=== PATIENT | male | born 1970 | race Two or more races ===

== ENCOUNTER 2024-02-03 14:00 | Outpatient (RCR) | payer MEDICAID, SELFPAY ==
--- NOTE | 2024-02-01 16:25 | PT.ODAYNRPT ---
PT Outpatient Daily Note OP Daily Note Outpatient Physical Therapy Treatment Date: 02/01/24 Visit Reasons: Chronic neck pain Subjective: Temporary relief after therapy visits. Objective: Objective: See F/S for therex Mech traction C/S x7' at 12 lbs MHP x5' C/S MT: HVT C1-2 rotary x1 R/L and x7' Assessment: C1-2 and CTJ were restricted prior to manual therapy. Good response to manual therapy. Plan: Continue per POC Length of Time (minutes) of Treatment: 30 Minutes Procedure Charges Therapeutic Exercise 30 minutes: Yes
--- NOTE | 2024-02-03 14:25 | PT.ODS1RPT ---
PT OP Progress/Discharge Note Date of Service: 02/03/24 Progress Note/DC Note Progress Note/Discharge Note: DC Note Patient Information Visit Reasons: Chronic neck pain Service Continue Service or Discharge: Discharge Status Subjective: The neck was hurting more than usual yesterday. Overall the pain is about the same, not helping. Objective: See F/S for therex Mech traction C/S x7' at 12 lbs MHP x5' C/S C/S AROM: Extension: 50% with pain Flexion: full with pain B rotation: L: 65%, R: 65% TTP: moderate of paraspinals Assessment: Pt attended the eval and 6 sessions with limited progress with therapy goals due to continued neck pain. Pt hasn't made progress with goals and pain interrupts sleep. PT recommends further diagnostic imaging of C/S. Thank you for your referrals. Plan: D/C Procedure Charges Therapeutic Exercise 30 minutes: Yes
== END 2024-02-27 23:59 | disposition home or self-care (01) ==
LOC: CPTX 14:00
PROVIDERS: PCP Nurse Practitioner Primary Care; Referring Provider Nurse Practitioner Primary Care; Visit Provider Nurse Practitioner Primary Care
DX: M54.12 Radiculopathy, cervical region (principal)
CPT/HCPCS: 97110

== ENCOUNTER → 2024-02-19 | Outpatient (BNVA) | payer MEDICAID, SELFPAY | END | disposition home or self-care (01) | PROVIDERS: PCP Nurse Practitioner Primary Care; Referring Provider Nurse Practitioner Primary Care; Visit Provider Nurse Practitioner Primary Care | DX: Z00.01 Encounter for general adult medical examination with abnormal findings (principal); Z11.3 Encounter for screening for infections with a predominantly sexual mode of transmission; Z12.5 Encounter for screening for malignant neoplasm of prostate; Z13.220 Encounter for screening for lipoid disorders; Z13.21 Encounter for screening for nutritional disorder; Z76.89 Persons encountering health services in other specified circumstances ==

== ENCOUNTER → 2024-02-23 | Outpatient (BNVA) | payer MEDICAID, SELFPAY | END | disposition home or self-care (01) | PROVIDERS: PCP Nurse Practitioner Primary Care; Referring Provider Nurse Practitioner Primary Care; Visit Provider Nurse Practitioner Primary Care | DX: Z71.2 Person consulting for explanation of examination or test findings (principal); H00.011 Hordeolum externum right upper eyelid; E78.2 Mixed hyperlipidemia | CPT/HCPCS: 99213 ==

== ENCOUNTER → 2024-03-17 | Outpatient (CLI) | payer MEDICAID, SELFPAY ==
--- NOTE | 2024-03-17 08:30 | XR_ITS ---
Examination: MRI cervical spine without intravenous contrast Date and time of exam: March 17, 2024 0854 hours INDICATIONS: Neck pain radiating to both arms 5 years Technique: Multiple axial and sagittal sections of the cervical spine to been obtained. T2 weighted sagittal sections, TR 3, 270, TE 117 T1-weighted sagittal sections, TR 500, TE 11 T1-weighted axial sections, TR 607, TE 12, axial sections TR 18, TE 27 and T2 weighted transverse sections, TR 3920, TE 122. Findings: Satisfactory alignment cervical vertebral bodies No cervical fracture Mild disc narrowing C6-C7 and C5-C6 Diffuse cervical disc desiccation Adequate marrow signal cervical vertebral bodies No localized enlargement cervical cord C2-C3 no disc protrusion C3-C4 advanced right neural foraminal stenosis C4-C5 moderate bilateral neural foraminal stenosis C5-C6 3 mm left paracentral osteophyte disc complex, moderate bilateral neural foraminal stenosis C6-C7 4 mm left paracentral subarticular osteophyte disc complex, moderate bilateral neural foraminal stenosis IMPRESSION: C3-C4 advanced right neural foraminal stenosis C4-C5, C5-C6 moderate bilateral neural foraminal stenosis C6-C7 4 mm left paracentral subarticular osteophyte disc complex, moderate bilateral neural foraminal stenosis
== END | disposition home or self-care (01) ==
LOC: SMRI 08:14
PROVIDERS: Referring Provider Nurse Practitioner Primary Care; Visit Provider Nurse Practitioner Primary Care
DX: M48.02 Spinal stenosis, cervical region (principal); M25.78 Osteophyte, vertebrae; G89.29 Other chronic pain
CPT/HCPCS: 72141

== ENCOUNTER → 2024-04-12 | Outpatient (BNVA) | payer MEDICAID, SELFPAY | END | disposition home or self-care (01) | PROVIDERS: PCP Nurse Practitioner Family; Referring Provider Nurse Practitioner Family; Visit Provider Nurse Practitioner Family | DX: M48.02 Spinal stenosis, cervical region (principal); Z71.2 Person consulting for explanation of examination or test findings | CPT/HCPCS: 99214 ==

== ENCOUNTER → 2024-07-27 | Outpatient (BNVA) | payer MEDICAID, SELFPAY | END | disposition home or self-care (01) | PROVIDERS: PCP Nurse Practitioner Primary Care; Referring Provider Nurse Practitioner Primary Care; Visit Provider Nurse Practitioner Primary Care | DX: M54.2 Cervicalgia (principal); M48.02 Spinal stenosis, cervical region; F41.8 Other specified anxiety disorders; F33.1 Major depressive disorder, recurrent, moderate; Z12.11 Encounter for screening for malignant neoplasm of colon | CPT/HCPCS: 99213 ==

== ENCOUNTER → 2024-08-02 | Outpatient (CLI) | payer MEDICAID, SELFPAY ==
--- NOTE | 2024-08-02 14:42 | XR_ITS ---
EXAMINATION: Cervical spine, 7 views Technique: Cervical spine AP, AP odontoid, lateral, bilateral obliques,, standing lateral flexion, standing lateral extension 7 views Exam date and time: August 02, 2024 1540 hours INDICATIONS: Injury to the neck 5 years ago with persistent neck pain. FINDINGS: Straightening normal cervical lordosis. No cervical fracture. Intact odontoid. Moderate degenerative disc disease C5-C6, C6-C7 Adequate range of motion between flexion and extension Mild to moderate bilateral neural foraminal stenosis C5-C6 IMPRESSION: Moderate degenerative disc disease C5-C6, C6-C7
== END | disposition home or self-care (01) ==
PROVIDERS: PCP Nurse Practitioner Primary Care; Referring Provider Nurse Practitioner; Visit Provider Nurse Practitioner
DX: M50.122 Cervical disc disorder at C5-C6 level with radiculopathy (principal)
CPT/HCPCS: 72050

== ENCOUNTER → 2024-08-10 | Outpatient (BNVA) | payer MEDICAID, SELFPAY | END | disposition home or self-care (01) | PROVIDERS: PCP Nurse Practitioner Primary Care; Referring Provider Nurse Practitioner Primary Care; Visit Provider Nurse Practitioner Primary Care | DX: F33.1 Major depressive disorder, recurrent, moderate (principal); F41.9 Anxiety disorder, unspecified; Z23 Encounter for immunization | CPT/HCPCS: 90471; 90677; 99213; J90677 ==

== ENCOUNTER → 2024-08-26 | Outpatient (BNVA) | payer MEDICAID, SELFPAY | END | disposition home or self-care (01) | PROVIDERS: PCP Nurse Practitioner Primary Care; Referring Provider Nurse Practitioner Primary Care; Visit Provider Nurse Practitioner Primary Care | DX: E78.5 Hyperlipidemia, unspecified (principal); R53.83 Other fatigue; L65.9 Nonscarring hair loss, unspecified; Z71.2 Person consulting for explanation of examination or test findings | CPT/HCPCS: 99214 ==

== ENCOUNTER → 2024-09-06 | Outpatient (BNVA) | payer MEDICAID, SELFPAY | END | disposition home or self-care (01) | PROVIDERS: PCP Nurse Practitioner Primary Care; Referring Provider Nurse Practitioner Primary Care; Visit Provider Nurse Practitioner Primary Care | DX: Z71.2 Person consulting for explanation of examination or test findings (principal) | CPT/HCPCS: 99213 ==

== ENCOUNTER → 2024-11-04 | Outpatient (BNVA) | payer MEDICAID, SELFPAY | END | disposition home or self-care (01) | PROVIDERS: PCP Nurse Practitioner Primary Care; Referring Provider Nurse Practitioner Primary Care; Visit Provider Nurse Practitioner Primary Care | DX: F33.1 Major depressive disorder, recurrent, moderate (principal); F41.8 Other specified anxiety disorders | CPT/HCPCS: 99213 ==

== ENCOUNTER → 2024-12-02 | Outpatient (BNVA) | payer MEDICAID, SELFPAY | END | disposition home or self-care (01) | PROVIDERS: PCP Nurse Practitioner Primary Care; Referring Provider Nurse Practitioner Primary Care; Visit Provider Nurse Practitioner Primary Care | DX: F33.1 Major depressive disorder, recurrent, moderate (principal); F40.10 Social phobia, unspecified | CPT/HCPCS: 99214 ==

== ENCOUNTER → 2025-02-01 | Outpatient (BNVA) | payer MEDICAID, SELFPAY | END | disposition home or self-care (01) | PROVIDERS: PCP Nurse Practitioner Family; Referring Provider Nurse Practitioner Family; Visit Provider Nurse Practitioner Family | DX: F33.1 Major depressive disorder, recurrent, moderate (principal); Z23 Encounter for immunization; F41.9 Anxiety disorder, unspecified; M54.50 Low back pain, unspecified; Z53.8 Procedure and treatment not carried out for other reasons | CPT/HCPCS: 90471; 90686; 99213; G0008 ==

== ENCOUNTER → 2025-03-02 | Outpatient (BNVA) | payer MEDICAID, SELFPAY | END | disposition home or self-care (01) | PROVIDERS: PCP Nurse Practitioner Primary Care; Referring Provider Nurse Practitioner Primary Care; Visit Provider Nurse Practitioner Primary Care | DX: Z00.01 Encounter for general adult medical examination with abnormal findings (principal); G47.00 Insomnia, unspecified; Z20.2 Contact with and (suspected) exposure to infections with a predominantly sexual mode of transmission; Z01.812 Encounter for preprocedural laboratory examination; Z13.220 Encounter for screening for lipoid disorders; Z13.228 Encounter for screening for other metabolic disorders; Z13.29 Encounter for screening for other suspected endocrine disorder; E55.9 Vitamin D deficiency, unspecified; Z12.5 Encounter for screening for malignant neoplasm of prostate; Z53.20 Procedure and treatment not carried out because of patient's decision for unspecified reasons | CPT/HCPCS: 93005; 99173; 99396; G0439 ==

== ENCOUNTER → 2025-03-09 | Outpatient (BNVA) | payer MEDICAID, SELFPAY | END | disposition home or self-care (01) | PROVIDERS: PCP Nurse Practitioner Primary Care; Referring Provider Nurse Practitioner Primary Care; Visit Provider Nurse Practitioner Primary Care | DX: E78.5 Hyperlipidemia, unspecified (principal); R94.5 Abnormal results of liver function studies | CPT/HCPCS: 99213 ==